=== PATIENT | male | born 1960 | race Caucasian/White ===

== ENCOUNTER → 2016-03-13 | Outpatient (CLI) | payer BC ==
[~2016-03-13] MED LIST: GADOBUTROL 10 ML VIAL IVP ONE
--- NOTE | 2016-03-13 14:32 | MR ---
MRI of the brain, with contrast. [facility] protocol. March 13, 2016. HISTORY: Preoperative evaluation for pituitary tumor. TECHNIQUE: After intravenous administration of 10 mL Gadavist, post contrast-enhanced axial volumetri c T1-weighted gradient echo sequences of the brain are obtained. An axial T2-weighted series was also obtained. FINDINGS: There is a large suprasellar mass which arises out of the sella turcica and extends superio rly to abut the optic chiasm and optic nerves and the undersurface of the anterior cerebral arteries. This mass measures 2.2 cm craniocaudal and mediolateral dimensions and 2.0 cm AP dimensions and is c ompatible with a pituitary macroadenoma. Postsurgical changes are present within the undersurface of the mass and in the posterior sphenoid sinus with associated mucosal thickening. No additional abnormal areas of brain enhancement or signal characteristics identified. IMPRESSION: 1. 2.2 cm suprasellar mass compatible with pituitary macroadenoma, extending superiorly to the level of the optic chiasm and anterior cerebral arteries.
--- NOTE | 2016-03-13 17:20 | CT ---
CT Maxillofacial (Without Contrast) at 1431 hours History: Pituitary macroadenoma.. Technique: Noncontrast axial computed tomographic images of the brain and maxillofacial at 1.25-mm sl ice thickness with coronal reconstructions. Dose reduction techniques were utilized. Findings: There is a mass in the sella turcica, which appears solid measuring 2.3 x 2.3 cm in axial d imension and 2.5 cm in cephalocaudal dimension extending into the suprasellar region demonstrating no definite calcification. There is a linear bone density probably from the posterior wall of the sphen oid sinus extending obliquely into the lesion. There is soft tissue noted in the posterior aspect of the sphenoid sinus. The rest of the paranasal sinuses are clear. No hydrocephalus, midline shift or h erniation. The study is limited due to lack of intravenous contrast. 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
== END ==
LOC: FIMAGING 13:12
PROVIDERS: ATTEND Neurological Surgery
DX: D35.2 Benign neoplasm of pituitary gland (principal)
CPT/HCPCS: A9585

== ENCOUNTER 2016-03-16 12:16 | Inpatient (IN) | payer BC ==
[~2016-03-16 12:16] MED LIST changes: +CEFUROXIME 1,500 MG in NS 50 ML IV ONE; +CHLORHEXIDINE GLUC HIBICLENS 118 ML BTL TP ONE; -GADOBUTROL 10 ML VIAL IVP ONE
[2016-03-16] MEDS ORDERED: LIDOCAINE 1% 5 ML SDV ONE (12:57)
[2016-03-16] MEDS ORDERED: MANNITOL 20% 100 GM/500 ML BAG IV ONE (13:46)
[2016-03-16] MEDS ORDERED: THROMBIN (RECOMBINANT) 5,000 UNIT VIAL TP ONE (13:46)
[2016-03-16] MEDS ORDERED: LIDO/EPI 1% **Not for Epidural 20 ML MDV ONE (13:47)
[2016-03-16] MEDS ORDERED: METHYLENE BLUE 0.5% 50 MG/10 ML AMP ONE (13:47)
[2016-03-16] MEDS ORDERED: BACITRACIN 50,000 UNITS/10 ML SYR IRR ONE (13:48)
[2016-03-16] MEDS ORDERED: EPINEPHrine 30 MG/30 ML MDV ONE (13:48)
[2016-03-16 13:52] LABS: % IMMATURE GRANULYOCYTES 0.7 % (0.0-1.1); ABSOLUTE IMMATURE GRANULOCYTES 0.04 10^3/uL (0.00-0.10); ADD DIFF? NO; ADD MORPH? NO; ADD SCAN? NO; ATYPICAL LYMPHOCYTE FLAG 0 (0-99); FRAGMENT RBC FLAG 0 (0-99); HEMATOCRIT 41.4 % (40.0-51.0); HEMOGLOBIN 15.3 g/dL (13.7-17.5); LEFT SHIFT FLG 0 (0-99); LIPEMIA HEMOLYSIS FLAG 90 (0-99); MEAN CELL HEMOGLOBIN 32.6 pg (27.9-34.1); MEAN CELL VOLUME 88.3 fL (81.5-99.8); MEAN PLATELET VOLUME 10.2 fL (8.7-11.7); PLATELET CLUMPS FLAG 0 (0-99); PLATELET COUNT 150 10^3/uL (150-400); RED BLOOD CELL COUNT 4.69 10^6/uL (4.40-6.38); RED CELL DISTRIBUTION WIDTH 13.1 % (11.5-15.2)
[2016-03-16 14:09] LABS: APTT 29.4 SEC (23.0-38.0); INR 0.96 (0.83-1.16); PROTIME(PATIENT) 12.7 SEC (12.0-15.0)
[2016-03-16 14:21] LABS: ANION GAP 13 mEq/L (8-16); CALCIUM 9.4 mg/dL (8.5-10.4); CARBON DIOXIDE 29 mEq/l (22-31); CHLORIDE 101 mEq/L (97-110); CREATININE 1.1 mg/dL (0.7-1.3); GLOMERULAR FILTRATION RATE > 60; GLUCOSE 83 mg/dL (70-100); POTASSIUM 4.4 mEq/L (3.5-5.2); SODIUM 143 mEq/L (134-144)
[2016-03-16] MEDS ORDERED: MIDAZOLAM 2 MG/2 ML VIAL ONE (14:38)
[2016-03-16] MEDS ORDERED: fentaNYL 100 MCG/2 ML INJ ONE ×2 (14:44→17:09)
[2016-03-16] MEDS ORDERED: PROPOFOL 200 MG/20 ML VIAL ONE (14:45)
[2016-03-16] MEDS ORDERED: ONDANSETRON 4 MG/2 ML VIAL ONE (14:47)
[2016-03-16] MEDS ORDERED: METOCLOPRAMIDE 10 MG/2 ML VIAL ONE (14:47)
[2016-03-16] MEDS ORDERED: ROCURONIUM 50 MG/5 ML VIAL ONE (14:47)
[2016-03-16] MEDS ORDERED: PHENYLEPHRINE HCL 100 MCG/ML SYR ONE (14:47)
[2016-03-16] MEDS ORDERED: HYDROCORTISONE 100 MG/2 ML VIAL ONE (17:54)
--- NOTE | 2016-03-16 19:02 | POSTOPPROG ---
Post Op Note Date of Operation: 03/16/16 Surgeon: Axel Hernandez Invasive Cardiologist: Saskia Monique MD Anesthesia: GET(General Endotracheal) Pre-op Diagnosis: pituitary adenoma Post-op Diagnosis: same Indication: residual pituitary adenoma Procedure: endoscopic transsphenoidal craniotomy for pituitary resection Findings: successful pituitary tumor removal Inf/Abcess present in the surg proc area at time of surgery?: No EBL: 50-100 Complications: none Drains: Other Specimen(s): pituitary adenoma Date of Surgery: 03/16/16 Post Op Day: 0 Assessment/Plan: s/p transsphenoidal resection of pituitary tumor - keep lumbar drain clamped for now - monitor for DI - nasal packs out tomorrow - CT tonight or tomorrow morning - endocrine consult tomorrow morning Subjective: no complaints Objective: AAOx3 CNII-XII grossly normal, VF at least at baseline strength full, sensation normal nasal packs in place Appropriate Neuro Check Frequency Ordered: Yes
[2016-03-16] MEDS ORDERED: BISACODYL 10 MG SUPP PR PRN (19:03)
[2016-03-16] MEDS ORDERED: LACTULOSE 20 GM/30 ML UDCUP PO PRN (19:03)
[2016-03-16] MEDS ORDERED: POLYETHYLENE GLYCOL 3350 17 GM PKT PO PRN (19:03)
[2016-03-16] MEDS ORDERED: MAGNESIUM HYDROXIDE 30 ML UDCUP PO PRN (19:03)
[2016-03-16] MEDS ORDERED: HYDROmorphONE/DILAUDID 1 MG/ML SYR ONE (19:07)
[2016-03-16] MEDS ORDERED: LORazepam 0.5 MG TAB PO PRN (19:11)
[2016-03-16] MEDS: HYDROmorphONE/DILAUDID 1 MG/ML SYR IVP PRN ×2 (19:24→21:46)
[2016-03-16] MEDS: NS W/ 20 KCl/L 1,000 ML IV SCH (19:24)
[2016-03-16] MEDS: niCARdipine/NACL 200 ML IV PRN (19:50)
[2016-03-16] MEDS: ACETAMN/DIPHENHYDRAMINE 500/25MG TAB PO SCH (20:02)
[2016-03-16] MEDS: SENNOSIDES/DOCUSATE SODIUM TAB PO SCH (20:02)
[2016-03-16] MEDS: HYDROCODONE/APAP 10/325 TAB PO PRN (20:02)
[2016-03-16] MEDS: clonazePAM 0.5 MG TAB PO SCH (20:02)
[2016-03-16] MEDS: HYDROCORTISONE 100 MG/2 ML VIAL IVP SCH (21:46)
[2016-03-16] MEDS: ONDANSETRON 4 MG/2 ML VIAL IVP PRN (21:46)
--- NOTE | 2016-03-17 00:44 | GOP ---
[f rep st] OPERATIVE REPORT DATE OF OPERATION: 03/16/2016 SURGEON: Axel Hernandez MD PREOPERATIVE DIAGNOSIS: Pituitary macroadenoma with visual loss. POSTOPERATIVE DIAGNOSIS: Pituitary macroadenoma with visual loss. PROCEDURE PERFORMED: 1. Endoscopic transsphenoidal craniotomy for redo resection of a partially resected pituitary macroa denoma. 2. Use of Stealth stereotactic neuronavigation for volumetric tumor resection. 3. Placement of lumbar drain. FINDINGS: Successful removal of a pituitary macroadenoma. SPECIMENS: The pituitary macroadenoma. ESTIMATED BLOOD LOSS: Approximately 50 cc. INDICATIONS: The patient is a 55-year-old man who is from [place]. He had been having visual loss and was seen to have a large, nearly 3 cm pituitary macroadenoma with suprasellar extension. He had seen a neurosurgeon in [place] and had a partial resection of the tumor via a sublabial approach, bu t according to the family, they were having some difficulties removing the remainder of the tumor. Nano simeon still has a very large suprasellar component and still has significant visual difficulty. He prese nted to our clinic, and we offered him repeat transsphenoidal surgery via an endoscopic approach. DESCRIPTION OF PROCEDURE: After informed consent was obtained from the patient, the patient was brou ght to the operating room. A formal time-out was performed, identifying the patient by name, medical record number and date of . Preoperative antibiotics were given. The endotracheal tube was pl aced, and general endotracheal anesthesia was smoothly induced. The patient was then turned into the left lateral decubitus position, and the lumbar region was prepped and draped in the normal sterile fashion. Localizing in the L3-4 interspace at the upper portion of the inner iliac crest, a 14-gauge Touhy needle was then placed in the interlaminar space, into the thecal space, with a good return of clear CSF. A lumbar drain catheter was then threaded to a depth of approximately 30 cm at the skin and was secured to the skin using a nylon stitch. The drain was then connected to a sterile drainage system and was dressed sterilely on the lumbar region. The drain was working well with a good flow of CSF. The patient was then turned back into the supine position, where his head was placed in a neutral pos ition on a horseshoe headrest. The nose was prepared using epinephrine-soaked patties by Dr. Monique , and the facial region was prepped using Betadine. The patient was then prepped and draped in the n ormal sterile fashion, leaving the nose and eyes exposed. The Stealth fusion station was then locali zed to the scalp using known surface landmarks and was checked for accuracy. The approach was then d one by Dr. Monique using the endoscope. This will be dictated under a separate note, but in brief, t he superior turbinates were resected bilaterally and the middle turbinates were pushed laterally. Th e sphenoid ostia were visualized, and the posterior portion of the nasal septum was resected. The p revious sphenoidotomy was visualized and a lot of scar tissue was removed from around the sphenoidoto my, and the sphenoidotomy was made larger using Kerrison punches. At this point, the contents of the sphenoid sinus, which included some packing from previous, were removed. The posterior sphenoid sin us was visualized, and a lot of swollen mucosa was visualized there. This was stripped somewhat from the bone, and a very small opening in the sella was visualized. Given the amount of scar tissue and the size of the tumor, the dissection and resection of the tumor was approximately 50% to 60% more d ifficult than would normally be expected and took somewhat longer and was more tedious. Using Kerris on punches, I then removed the anterior wall of the sella down to the sellar floor and up to the junc tion of the anterior cranial fossa. This allowed for further visualization of the tumor. A small pi osvaldo of bone, which appeared to have been placed at the previous surgery, was visualized within the tu mor in the sella turcica. Once this was removed, the tumor was visualized, and we were able to remov e the lateral and posterior components using ring curettes and pituitary forceps. Once the posterior portion was removed, we then flushed about 100 cc of sterile saline in through the lumbar drain to h elp deliver the upper portion of the tumor, which was not well visualized. This portion of the tumor then came down into the sella and was removed nearly en bloc with pituitary forceps. We then used r ing curettes to remove a small amount of residual tumor at the edges, and the lumbar drain was draine d to allow the arachnoid to return back into the suprasellar cistern. We could clearly see through t he arachnoid that all the upper portion of the tumor had been removed. We then inspected the posteri or cavity of the sella and used ring curettes again to remove a large piece of tumor which was residu al in the right portion near the cavernous sinus. All bleeding was then controlled using bipolar electrocautery and Surgicel. We did briefly use a 45- degree endoscope to visualize the upper portions where no further tumor was seen. No CSF was leaking from the arachnoid at that point. The ENDYMIONalth unit was again used to check our margins and be sure that the entirety of the tumor was resected. At this point, a small bit of Surgicel was placed into the sella to stop any bleeding from the cavernous sinus. This was quite dry. Given there was no vis ualized CSF leak, I did not feel it was necessary to take an abdominal fat graft. Therefore the sell ar opening was covered with Surgicel, and this was covered with DuraSeal. The sphenoid sinus was the n packed with Gelfoam and Surgicel, and Merocel nasal packs were placed inferiorly by Dr. Monique and used to tamponade the mucosa. At this point, the nose was copiously irrigated using bacitracin irri gation. The patient was then awakened in the operating room, where he was extubated and was transfer red to the ICU in good condition. There were no operative complications. The patient was at his juan carlos rologic baseline, with possibly slightly improved vision after surgery. COSURGEON: Diane Monique MD, of Otolaryngology. FLUIDS AND URINE OUTPUT: Per the anesthesia record. COUNTS: All sponge and needle counts were correct at the end of the case. DRAINS: Lumbar drain. /[id number]/MODL
[2016-03-17] MEDS: niCARdipine/NACL 200 ML IV PRN (01:03)
[2016-03-17] MEDS: HYDROCODONE/APAP 10/325 TAB PO PRN (02:00)
[2016-03-17] MEDS: HYDROmorphONE/DILAUDID 1 MG/ML SYR IVP PRN (02:00)
[2016-03-17] MEDS: ONDANSETRON 4 MG/2 ML VIAL IVP PRN (02:08)
[2016-03-17] MEDS ORDERED: CALCIUM CARBONATE 500 MG CHEWABLE TAB PO ONE ×2 (02:25)
[2016-03-17] MEDS ORDERED: CALCIUM CARBONATE 500 MG CHEWABLE TAB PO PRN (02:37)
[2016-03-17] MEDS: NS W/ 20 KCl/L 1,000 ML IV SCH (05:05)
[2016-03-17 05:36] LABS: % IMMATURE GRANULYOCYTES 0.6 % (0.0-1.1); ABSOLUTE IMMATURE GRANULOCYTES 0.06 10^3/uL (0.00-0.10); ADD DIFF? NO; ADD MORPH? NO; ADD SCAN? NO; ATYPICAL LYMPHOCYTE FLAG 10 (0-99); FRAGMENT RBC FLAG 0 (0-99); HEMATOCRIT 40.5 % (40.0-51.0); HEMOGLOBIN 14.3 g/dL (13.7-17.5); LEFT SHIFT FLG 10 (0-99); LIPEMIA HEMOLYSIS FLAG 90 (0-99); MEAN CELL HEMOGLOBIN 32.1 pg (27.9-34.1); MEAN CELL HEMOGLOBIN CONCENTR. 35.3 g/dL (32.4-36.7); MEAN PLATELET VOLUME 9.8 fL (8.7-11.7); PLATELET CLUMPS FLAG 0 (0-99); PLATELET COUNT 162 10^3/uL (150-400); RED BLOOD CELL COUNT 4.45 10^6/uL (4.40-6.38); RED CELL DISTRIBUTION WIDTH 13.1 % (11.5-15.2)
[2016-03-17] MEDS: LEVOTHYROXINE 50 MCG TAB PO SCH (05:58)
[2016-03-17] MEDS: HYDROCORTISONE 100 MG/2 ML VIAL IVP SCH ×3 (05:58→21:00)
[2016-03-17] MEDS: ACETAMINOPHEN 325 MG TAB PO PRN ×4 (05:58→20:12)
[2016-03-17 06:01] LABS: ANION GAP 8 mEq/L (8-16); CALCIUM 8.7 mg/dL (8.5-10.4); CARBON DIOXIDE 28 mEq/l (22-31); CHLORIDE 103 mEq/L (97-110); CREATININE 1.2 mg/dL (0.7-1.3); GLOMERULAR FILTRATION RATE > 60; GLUCOSE 120 mg/dL (70-100); SODIUM 139 mEq/L (134-144)
[2016-03-17 06:03] LABS: POTASSIUM 6.3 mEq/L (3.5-5.2)
[2016-03-17 06:58] LABS: POTASSIUM 5.3 mEq/L (3.5-5.2)
--- NOTE | 2016-03-17 07:24 | NEUSURGPN ---
Assessment/Plan: 55 yo male sp endoscopic redo resection of pituitary adenoma. Preexisting VF deficits unchanged. Neuro stable and doing well with mild PENNY No DI overnight. UOP averaged 93ml/hr over 12 hr shift LD has been clamped since surgery and pt is not having any drainage down back of throat that he is aware of Nasal packing still in. Plan: Discussed with Dr. Hernandez Keep LD until tomorrow Dr. Weston to remove nasal packing Dr Rose (Endo) to come by today to assist and direct steroid use/taper Oxy IR for Pain Pepcid added notify NS if UOPover 250ml/hr x 2 hrs. If so, send specific gravity and Na level and notify Dr. Hernandez Subjective: awake, feeling ok, denies nasal drainage. Mild PENNY no new issues. Objective: NEURO: A+Ox4, follows commands, equal strenght throughout VF deficit unchanged per pt LD: Clamped UOP: 93ml/hr on average over 12 hrs. CTH: small amt of blood in operative bed -expected. Urinary Catheter in Place: Yes Urinary Catheter Indication: Surgical Requirement Catheter Insertion Date: 03/16/16 - Physician Discussed Patient with : Mary Neurosurgery Physical Exam - Vitals, I&O, Labs I and O 03/16/16 03/17/16 03/18/16 05:59 05:59 05:59 Intake Total 1189 Output Total 1125 Balance 64 Weight 104.5 kg Intake: IV Infused (ml) 1189 niCARdipine/NACL 200 ml @ 177 Titrate IV PRN PRN Rx#: [id number] NS W/ 20 KCl/L 1,000 ml @ 1012 100 mls/hr IV CONT JADA Rx#:[id number] Output: Urine (ml) 1125 Catheter 1125 Other: Intake Quantity Yes Sufficient Vital Signs Temp Pulse Resp BP Pulse Ox 36.2 C 71 11 L 105/75 99 03/16/16 18:56 03/17/16 06:00 03/17/16 06:00 03/17/16 06:00 03/17/16 06:00 Laboratory Results 03/17/16 05:30 03/17/16 05:42 ICD10 Worksheet Patient Problems: Problems Problem Status Diagnosed Pituitary adenoma Acute - ICD10 Problem Qualifiers (1) Pituitary adenoma
--- NOTE | 2016-03-17 08:43 | CT ---
CT Head Without Contrast History: Follow-up pituitary macroadenoma resection. Technique: Noncontrast images through the head. Soft tissue and bone window evaluation is performed. Dose reduction techniques were utilized. Findings: Post transsphenoidal resection, there is a contiguous hematoma in the suprasellar cistern t hat extends into the previously widened posterior inferior aspect of the anterior interhemispheric fi ssure and in the upper portion of the chronically expanded sella turcica. There is a small amount of subarachnoid blood in the interpeduncular cistern, within the occipital horns of both lateral ventric les and in the posterior aspect of the right sylvian fissure. There is no hydrocephalus or midline sh ift. The ambient cistern remains patent. A small 4mm nodule within the posterior inferior sella turc ica may represent a secondary hematoma. There is packing in both sides of the nose. Impression: Postoperative hemorrhage. General information for patients regarding this examination can be found at [email or web address]. If you have questions or comments about this report, please contact me at [phone] (hospital) or [phone] (cell).
[2016-03-17] MEDS: clonazePAM 0.5 MG TAB PO SCH ×2 (09:00→20:13)
[2016-03-17] MEDS: FAMOTIDINE 20 MG TAB PO SCH ×2 (09:00→20:12)
[2016-03-17] MEDS: buPROPion XL 150 MG TAB PO SCH (09:00)
[2016-03-17] MEDS: SENNOSIDES/DOCUSATE SODIUM TAB PO SCH ×2 (09:01→20:12)
[2016-03-17 14:48] LABS: ANION GAP 6 mEq/L (8-16); CALCIUM 7.9 mg/dL (8.5-10.4); CARBON DIOXIDE 24 mEq/l (22-31); CHLORIDE 113 mEq/L (97-110); GLOMERULAR FILTRATION RATE > 60; GLUCOSE 106 mg/dL (70-100); POTASSIUM 4.1 mEq/L (3.5-5.2); SODIUM 143 mEq/L (134-144)
--- NOTE | 2016-03-17 15:05 | GCON ---
[f rep st] CONSULTATION CRITICAL CARE CONSULTATION DATE OF CONSULTATION: 03/17/2016 HISTORY OF PRESENT ILLNESS: The patient is a 55-year-old male who originally presented with visual c hanges. An MRI showed a pituitary adenoma. He underwent resection in January of this past year but had suboptimal results. He initially got better but had increasing headaches, and an MRI showed a s ignificant residual tumor. He underwent transsphenoidal resection yesterday, and that was without co mplication and he feels much better. His vision has improved. In terms of symptoms, he feels that the visual acuity is back to normal. His headache is gone. He h as had no hearing changes. No swallowing difficulties. No fevers, chills, or sweats. No shortness of breath or chest pain. The rest of the review of systems is otherwise negative. PAST MEDICAL HISTORY: Includes: 1. Pituitary tumor as described above. 2. Depression. 3. 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 PAST SURGICAL HISTORY: Includes the previous resection as well as the current one. SOCIAL HISTORY: He is a nonsmoker. No alcohol or IV drug use. FAMILY HISTORY: Noncontributory at this time. CURRENT MEDICATIONS: Include Tylenol, [place], Dulcolax, Wellbutrin, Klonopin, Pepcid, Solu-Cortef 50 mg IV q.8, Dilaudid p.r.n., lactulose p.r.n., Synthroid, Zofran, MiraLAX, nicardipine as needed to ma intain blood pressure. PHYSICAL EXAM: VITAL SIGNS: He was afebrile. His blood pressure was 108/76 with a heart rate of 76 , respirations 14, oxygen saturation 97% on room air. GENERAL: He was awake and alert, in no appare nt distress and able to speak in full sentences without using accessory muscles for breathing. He wa s overweight but not terribly obese. HEENT: Pupils were equally round and reactive to light, nonict amando and noninjected. His dressing under his nose was clean and dry. NECK: Supple without adenopat hy or jugular vein distention. LUNGS: Breath sounds were clear to auscultation bilaterally without wheezes, rubs or rales. HEART: Regular rate and rhythm without murmurs, rubs, or gallops. ABDOMEN: Soft, nontender, and nondistended without hepatosplenomegaly. EXTREMITIES: No clubbing, cyanosis, or edema. NEUROLOGIC: Nonfocal, including cranial nerves and deep tendon reflexes. SKIN: Warm an d dry without evidence of rash. LABORATORY STUDIES: Objective data includes a white count of 10, hematocrit of 40, platelets of 162. Sodium 141, potassium 5.3 and this was noted at 0542, chloride 103, bicarb 28, BUN 21, creatinine 1 .2. Specific gravity was 1.03 and urine sodium was 12, which is low, and this was drawn at 0930. Of note, his urine output has picked up to 2416-5555 mL/h. ASSESSMENT/PLAN: 1. Pituitary adenoma. This appears to have been resected without difficulty and seems to be doing w ell from that perspective. 2. 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 Endocrine is soon t o see him, and we are keeping up with his fluid. The urine sodium is low at this time. We should pr obably look at a serum sodium this afternoon to see if that is climbing, in which case we might give DDAVP. 3. Panhypopituitarism. He should be covered reasonably well on the current steroids, although I def er to Endocrine, of course, and they should be able to see him in the very near future. /[id number]/MODL
[2016-03-17] MEDS: NS 1,000 ML IV SCH (15:12)
[2016-03-17] MEDS ORDERED: DESMOPRESSIN 0.1 MG TAB PO SCH (17:00)
--- NOTE | 2016-03-17 17:13 | SOAPPROG ---
SOAP Progress Note Assessment/Plan: Assessment: POD 1 transsphenoidal approach to the pituitary for macroadenoma. Pack removed. Looks great. No overt leak sxs. Minimal bloody dc which will likely stop since packs pulled. Given instructions for post op care. Will come back in 6 weeks for recheck. Can start nasal saline mist in 2 weeks and rinses in 6 weeks. CSF leak precautions given. No nose blowing for 6 weeks. Call with further questions. 03/17/16 17:10 Subjective: Doing well, no sig PENNY, no salty PND or rhinorrhea. Packs in place, minimal ooze. Objective: AAOx3 PERRL, EOMI OU Nasal packs removed from each side. NC clear on rhinoscopy No sig bleeding Vital Signs Temp Pulse Resp BP Pulse Ox 36.6 C 82 14 115/70 96 03/17/16 16:00 03/17/16 16:00 03/17/16 16:00 03/17/16 16:00 03/17/16 16:00 Laboratory Results 03/17/16 05:30 03/17/16 14:10 03/16/16 03/17/16 03/18/16 05:59 05:59 05:59 Intake Total 1189 960 Output Total 1125 6200 Balance 64 -5240 PT 12.7 SEC (12.0-15.0) 03/16/16 13:35 INR 0.96 (0.83-1.16) 03/16/16 13:35 ICD10 Worksheet Patient Problems: Problems Problem Status Diagnosed Pituitary adenoma Acute
[2016-03-17] MEDS: diphenhydrAMINE 25 MG CAP PO PRN (20:12)
[2016-03-17] MEDS: ACETAMN/DIPHENHYDRAMINE 500/25MG TAB PO SCH (20:12)
[2016-03-18] MEDS: ACETAMINOPHEN 325 MG TAB PO PRN ×4 (02:14→19:31)
[2016-03-18] MEDS ORDERED: DESMOPRESSIN 0.1 MG TAB PO SCH (02:30)
[2016-03-18] MEDS: HYDROCORTISONE 100 MG/2 ML VIAL IVP SCH ×3 (05:58→21:53)
[2016-03-18] MEDS: LEVOTHYROXINE 50 MCG TAB PO SCH (05:58)
[2016-03-18] MEDS: buPROPion XL 150 MG TAB PO SCH (08:25)
[2016-03-18] MEDS: SENNOSIDES/DOCUSATE SODIUM TAB PO SCH ×2 (08:25→20:56)
[2016-03-18] MEDS: FAMOTIDINE 20 MG TAB PO SCH ×2 (08:25→20:57)
[2016-03-18] MEDS: clonazePAM 0.5 MG TAB PO SCH ×2 (08:25→20:57)
--- NOTE | 2016-03-18 11:31 | NEUSURGPN ---
Date of Surgery: 03/17/16 Post Op Day: 1 Assessment/Plan: s/p transsphenoidal resection of pituitary tumor - lumbar drain removed - had some large urine output overnight, 4L, was redosed with 0.1mg of DDAVP - nasal packs out, no CSF leak - endocrine consult pending to determine DI management and steroid taper - possible d/c tomorrow if DI well controlled Subjective: no complaints, improving daily Objective: AAOX3, VF improving, still some bitemporal hemianopsia, Full strength and sensation Catheter Insertion Date: 03/16/16 - Physician Patient Seen by DrFransisco: Mary Neurosurgery Physical Exam - Vitals, I&O, Labs I and O 03/17/16 03/18/16 03/19/16 05:59 05:59 05:59 Intake Total 1189 6892 Output Total 1125 57624 665 Balance 64 -3808 -665 Weight 104.5 kg Intake: Oral (ml) 2460 IV Infused (ml) 1189 4432 niCARdipine/NACL 200 ml @ 177 Titrate IV PRN PRN Rx#: [id number] NS W/ 20 KCl/L 1,000 ml @ 1012 100 mls/hr IV CONT JADA Rx#:[id number] Ns 1,000 ml @ As Directed 4432 IV AD JADA Rx#:[id number] Output: Urine (ml) 1125 02801 665 Catheter 1125 39966 665 Other: Intake Quantity Yes Yes Sufficient Vital Signs Temp Pulse Resp BP Pulse Ox 37.3 C 68 10 L 124/70 H 98 03/18/16 08:00 03/18/16 10:00 03/18/16 10:00 03/18/16 10:00 03/18/16 10:00 Laboratory Results 03/17/16 05:30 03/18/16 06:30 ICD10 Worksheet Patient Problems: Problems Problem Status Diagnosed Pituitary adenoma Acute
[2016-03-18] MEDS: NS 1,000 ML IV SCH ×2 (12:07→23:32)
[2016-03-18 12:24] LABS: GLUCOSE 88 mg/dL (70-100); SODIUM 144 mEq/L (134-144)
--- NOTE | 2016-03-18 12:54 | SOAPPROG ---
DONNELL Progress Note Assessment/Plan: Assessment: S/p TSS for pituitary macroadenoma, null cell. Now in DI. Plan: Recommend DDAVP 0.1mg every 6 hours prn excessive thirst and over 250cc UOP for more than 2 hours Check sodium and spec grav every 6 hours for 24 hours, will follow it after d/c as an outpt Recommend discharging on Hydrocortisone 20mg in the am and 10mg in the afternoon , around 1-2pm Can also discharge with DDAVP 0.1mg as needed every 8 hours, discussed symptoms of DI, and when he should take it He should go to the lab on 03/21/16 for BMP, TSH, FT4, and urine spec grav We will contact him with a follow up apt He was given office contact information for any questions 03/18/16 12:47 03/18/16 15:30 Subjective: Called to see for DI s/p TSS for pituitary macroadenoma Sodium level is still high normal, he denies excessive thirst, and did well with DDAVP overnight UOP now over 250cc per hour Objective: Vital Signs Temp Pulse Resp BP Pulse Ox 36.7 C 70 12 119/72 98 03/18/16 12:00 03/18/16 12:00 03/18/16 12:00 03/18/16 12:00 03/18/16 12:00 Laboratory Results 03/17/16 05:30 03/18/16 11:45 03/17/16 03/18/16 03/19/16 05:59 05:59 05:59 Intake Total 1189 3792 Output Total 1125 58634 915 Balance 64 -3808 -915 PT 12.7 SEC (12.0-15.0) 03/16/16 13:35 INR 0.96 (0.83-1.16) 03/16/16 13:35 ICD10 Worksheet Patient Problems: Problems Problem Status Diagnosed Pituitary adenoma Acute
--- NOTE | 2016-03-18 13:38 | GOP ---
[f rep st] OPERATIVE REPORT DATE OF OPERATION: 03/16/2016 SURGEON: Diane Monique MD CO-SURGEON: Axel Hernandez MD COMPLICATIONS: None apparent. ANESTHESIA: General. PREOPERATIVE DIAGNOSIS: 1. Pituitary macroadenoma. 2. Bitemporal hemianopsia. POSTOPERATIVE DIAGNOSIS: 1. Pituitary macroadenoma. 2. Bitemporal hemianopsia. PROCEDURE PERFORMED: 1. Endoscopic transnasal/transsphenoidal approach to the pituitary for revision resection. 2. Stereotactic volumetric navigation of the paranasal sinuses and intracranial regions. FINDINGS: The patient was found to have a previous sublabial approach to the pituitary tumor. There was a very small sphenoidotomy on both sides, but they basically looked like they had been scarred in. There was really not much of the posterior septum that was taken out at all, and there was a very small portion of the sellar bone that had been removed. After widening the approach, Dr. Hernandez was able to successfully remove the remainder of the tumor. ESTIMATED BLOOD LOSS: About 50 cc. INDICATIONS: This is a very pleasant 55-year-old man who is from [place]. He was having bitemporal hemianopsia and was noted to have an almost 3 cm pituitary macroadenoma with suprasellar extension on MRI. He saw a surgeon in [place] and had a partial resection done about 6 weeks ago, but apparently they had some difficulty removing the entire tumor, so he came to us for a secondary opinion and resection. On preoperative MRI as well as CT scan, all sinuses were intact as well as the septum. He still had a very large suprasellar component and still had vision loss. DESCRIPTION OF PROCEDURE: The patient was first seen in the preoperative area, and informed consent was obtained. He was then brought back to the operating room where Anesthesia sedated and intubated him. The bed was turned 180 degrees. I initially placed just under 1 cc of 1% lidocaine with 1:200,000 epinephrine in the greater palatine foramen on both sides under direct visualization. This was not injected into the vessels, but just into the canal to help with hemostasis during the surgery. After this was done, Dr. Hernandez performed a lumbar drain without difficulty. The patient was turned back over into the supine position, and then he was prepped and draped in a sterile fashion. Epi-soaked pledgets were placed within the nares first for vasoconstriction. Once this was done, they were removed. Then the Unicontronic Fusion headpiece was placed on the forehead, and this was registered and confirmed to tracking accurately. Once this was done, the zero-degree scope was used to evaluate the nasal cavity bilaterally. It did look like they had probably previously approached this from the left side, as there was absent and irritated mucosa on the left side of the septum. All of the nasal cavity anatomy was intact. So at this point, I used a Conley to lateralize the middle turbinate on both sides until I could see the superior turbinate. Then first on the left, I used a straight Thru-Cut to remove the inferior one-third of the superior turbinate, and then this was completed using the microdebrider, removing probably the inferior two-thirds of this area on both sides. At this point, I then could see a very small sphenoid os that looked like it had been scarred in. This was able to be widened using the microdebrider. After confirmation with our Fusion-guided suction, this was done on both sides. Then once I could see into the sphenoids on both sides, I then used a caudal instrument to make a [id number] cut of the posterior septum about 2 cm proximal to the face of the sphenoid bone. Then a straight Thru-Cut as well as the microdebrider were used to remove the rest of the superior posterior septum, trying to keep intact the inferior portion where the nasoseptal flap pedicle would be, although I was not certain whether this vessel had been saved or not on his previous surgery. Once this was done and the septectomy was finished, the microdebrider as well as a combination of hand instruments were used to continue widening the approach superiorly, inferiorly, and then laterally. At this point, we were able to see significant edematous mucosa throughout the sphenoid on both sides. There was a little bit of intersinus septum that was taken down, and then we could see the previous entry into the sella. This was significantly more difficult due to his previous surgery and some changes to the anatomy as well as significantly irritated mucosa throughout the sphenoid. At this point after the mucosa was removed around this area, my portion of the procedure was complete, so Dr. Hernandez and I switched sides, with him coming to the right side of the patient and me going to the left side of the patient. I continued to assist in endoscopic visualization through the left side of the nasal cavity, and he would work through the right side. The remainder of the tumor was removed without difficulty, and this is dictated under a separate procedure note by Dr. Hernandez. Once this was done, we did not see any significant CSF leaking. The Stealth was used to check margins and confirm that the entirety of the tumor was resected. We did see arachnoid herniating down into the sella with no further tumor noted. Dr. Hernandez covered the sellar opening with Surgicel and then DuraSeal. Then the sphenoid sinus was packed with Gelfoam and Surgicel. At this point, I then placed Merocel nasal packs that were cut to size, one on each side, stopping just at the face of the sphenoid. The nasal cavity was suctioned clear. All instruments were removed. The patient was turned back over to Anesthesia, and he was awakened and extubated in normal condition. There were no complications, and he tolerated the procedure well. /[id number]/MODL MTDD
--- NOTE | 2016-03-18 13:41 | PDINTPN ---
[employer] Line Supervisor Progress Note Assessment/Plan: Assessment/plan: 55 M with pituitary adenoma and panhypopituitarism admitted 03/16 for transphenoidal resction complicated only by DI. * Pit adenoma resection stable post op * DI- seen by endo today. Planning Q6 hr Na/urine SG checks and DDAVP with UOP > 250/hr (current) * Panhypopit- remains on hydrocortisone * Dispo- likely home in AM Objective: Vital Signs Temp Pulse Resp BP Pulse Ox 36.7 C 70 12 119/72 98 03/18/16 12:00 03/18/16 12:00 03/18/16 12:00 03/18/16 12:00 03/18/16 12:00 Laboratory Results 03/17/16 05:30 03/18/16 11:45 03/17/16 03/18/16 03/19/16 05:59 05:59 05:59 Intake Total 1189 6892 Output Total 1125 10283 915 Balance 64 -3808 -915 PT 12.7 SEC (12.0-15.0) 03/16/16 13:35 INR 0.96 (0.83-1.16) 03/16/16 13:35 Physical Exam - Physical Exam General Appearance: alert, no apparent distress EENT: PERRL/EOMI, normal ENT inspection Neck: full range of motion, supple Respiratory: lungs clear, normal breath sounds, No respiratory distress Cardiac/Chest: normal peripheral pulses, regular rate, rhythm, No edema Abdomen: normal bowel sounds, non-tender, soft Skin: normal color, warm/dry, No rash Lymphatic: no adenopathy Extremities: normal range of motion, non-tender, No pedal edema Neuro/Psych: alert, normal mood/affect, oriented x 3 ICD10 Worksheet Patient Problems: Problems Problem Status Diagnosed Pituitary adenoma Acute
[2016-03-18] MEDS: DESMOPRESSIN 0.1 MG TAB PO PRN ×2 (13:56→21:02)
[2016-03-18 18:29] LABS: ANION GAP 6 mEq/L (8-16); CALCIUM 8.7 mg/dL (8.5-10.4); CARBON DIOXIDE 29 mEq/l (22-31); CHLORIDE 106 mEq/L (97-110); CREATININE 1.1 mg/dL (0.7-1.3); GLOMERULAR FILTRATION RATE > 60; GLUCOSE 121 mg/dL (70-100); POTASSIUM 4.3 mEq/L (3.5-5.2); SODIUM 141 mEq/L (134-144)
[2016-03-18] MEDS: ACETAMN/DIPHENHYDRAMINE 500/25MG TAB PO SCH (19:31)
[2016-03-18] MEDS: diphenhydrAMINE 25 MG CAP PO PRN (20:56)
[2016-03-19 01:44] LABS: ANION GAP 5 mEq/L (8-16); CALCIUM 7.5 mg/dL (8.5-10.4); CARBON DIOXIDE 25 mEq/l (22-31); CHLORIDE 113 mEq/L (97-110); CREATININE 0.8 mg/dL (0.7-1.3); GLOMERULAR FILTRATION RATE > 60; GLUCOSE 125 mg/dL (70-100); POTASSIUM 3.6 mEq/L (3.5-5.2); SODIUM 143 mEq/L (134-144)
[2016-03-19] MEDS: LEVOTHYROXINE 50 MCG TAB PO SCH (05:58)
[2016-03-19] MEDS: HYDROCORTISONE 100 MG/2 ML VIAL IVP SCH (05:58)
[2016-03-19 07:25] LABS: ANION GAP 7 mEq/L (8-16); CALCIUM 7.6 mg/dL (8.5-10.4); CARBON DIOXIDE 19 mEq/l (22-31); CHLORIDE 116 mEq/L (97-110); CREATININE 0.8 mg/dL (0.7-1.3); GLOMERULAR FILTRATION RATE > 60; GLUCOSE 89 mg/dL (70-100); POTASSIUM 4.4 mEq/L (3.5-5.2); SODIUM 142 mEq/L (134-144); SPECIMEN HEMOLYSIS 153
[2016-03-19] MEDS: FAMOTIDINE 20 MG TAB PO SCH (08:31)
[2016-03-19] MEDS: clonazePAM 0.5 MG TAB PO SCH (08:31)
[2016-03-19] MEDS: buPROPion XL 150 MG TAB PO SCH (08:31)
[2016-03-19] MEDS: SENNOSIDES/DOCUSATE SODIUM TAB PO SCH (08:31)
[2016-03-19 08:48] VITALS: BP 129/78; PULSE 87; RESP 18; TEMP 98; O2SAT 99
--- NOTE | 2016-03-19 10:25 | NEUSURGPN ---
Date of Surgery: 03/16/16 Post Op Day: 3 Assessment/Plan: s/p transsphenoidal resection of pituitary tumor - lumbar drain removed yesterday - I/O 1278/4040 over last 24hr - nasal packs out, no CSF leak - sodium 142 this am with [employer] of 1.011 - will plan to d/c home today - will write scripts for PRN DDAVP and hydrocortisone - will followup for labs with Dr. Rose on Sunday - followup with [facility] in 6 weeks Subjective: no complaints, thinks vision is improving Objective: AAOx3 no sign of CSF leak bitemporal hemianopsia stable strength full Catheter Insertion Date: 03/16/16 - Physician Patient Seen by DrFransisco: [facility] Physical Exam - Vitals, I&O, Labs I and O 03/18/16 03/19/16 03/20/16 05:59 05:59 05:59 Intake Total 6892 3349 Output Total 30419 4040 Balance -3808 -691 Intake: Oral (ml) 2460 1500 IV Infused (ml) 4432 1849 Ns 1,000 ml @ As Directed 4432 1849 IV AD JADA Rx#:[id number] Output: Urine (ml) 13749 4040 Catheter 24311 4040 Other: Intake Quantity Yes Yes Sufficient Number of Stools Catheter 1 Vital Signs Temp Pulse Resp BP Pulse Ox 36.7 C 87 18 129/78 H 99 03/19/16 08:00 03/19/16 08:00 03/19/16 08:00 03/19/16 08:00 03/19/16 08:00 Laboratory Results 03/17/16 05:30 03/19/16 06:05 ICD10 Worksheet Patient Problems: Problems Problem Status Diagnosed Pituitary adenoma Acute
[2016-03-19] MEDS: ACETAMINOPHEN 325 MG TAB PO PRN (10:39)
[2016-03-19] MEDS: DESMOPRESSIN 0.1 MG TAB PO PRN (10:39)
== END 2016-03-19 12:10 | disposition home or self-care (01) | DRG 614 ==
LOC: F3N 12:16 → F2N 18:49
PROVIDERS: ADMIT Neurological Surgery; ATTEND Neurological Surgery
PROC: 0GB04ZZ Excision of Pituitary Gland, Percutaneous Endoscopic Approach (ICD-10-PCS; principal; 2016-03-16 14:30)
PROC: 8E09XBZ Computer Assisted Procedure of Head and Neck Region (ICD-10-PCS; principal; 2016-03-16 14:30)
PROC: 009U30Z Drainage of Spinal Canal with Drainage Device, Percutaneous Approach (ICD-10-PCS; principal; 2016-03-16 14:30)
DX: D35.2 Benign neoplasm of pituitary gland (principal); E23.2 Diabetes insipidus; E23.0 Hypopituitarism; H53.47 Heteronymous bilateral field defects; E03.9 Hypothyroidism, unspecified; F32.9 Major depressive disorder, single episode, unspecified
CPT/HCPCS: 82947-QW; J0697; J1170; J2250; J2370; J2405; J2704; J2765; J3010; Q9968

== ENCOUNTER 2016-03-20 09:56 | Emergency (ER) | payer BC ==
--- NOTE | 2016-03-20 10:05 | EDPHY ---
H & P Stated Complaint: fever post surgery for pituitary tumor 03/16 dr machado Time Seen by Provider: 03/20/16 10:04 HPI/ROS: CHIEF COMPLAINT: Reported fever at home, slight headache HISTORY OF PRESENT ILLNESS: The patient presents to the ED for a reported fever at home to 101.2. The patient is approximately 3 days status post pituitary tumor resection which was uncomplicated. The patient did have some diabetes insipidus following that. He is currently being managed by Endocrinology with steroids and DDAVP. The patient denies cough, congestion, diarrhea or dysuria. The patient has no complaints of fever, cough or congestion. The patient denies flu-like illness. The patient denies focal neurologic symptoms or other concerns. REVIEW OF SYSTEMS: A comprehensive 10 point review of systems is otherwise negative aside from elements mentioned in the history of present illness. Source: Patient Exam Limitations: No limitations - Personal History Current Tetanus/Diphtheria Vaccine: Yes - Medical/Surgical History Hx Asthma: No Hx Chronic Respiratory Disease: No Hx Diabetes: No Hx Cardiac Disease: No Hx Renal Disease: No Hx Cirrhosis: No Hx Alcoholism: No Hx HIV/AIDS: No Hx Splenectomy or Spleen Trauma: No Other PMH: pituitary tumor/diabetes insipidus - Social History Smoking Status: Never smoked - Physical Exam Exam: General Appearance: Alert, no distress Eyes: Pupils equal and round no pallor or injection ENT, Mouth: Mucous membranes moist Respiratory: There are no retractions, lungs are clear to auscultation Cardiovascular: Regular rate and rhythm Gastrointestinal: Abdomen is soft and nontender, no masses, bowel sounds normal Neurological: A&O, normal motor function, normal sensory exam, normal cranial nerves Skin: Warm and dry, no rashes Neck: No meningeal symptoms Musculoskeletal: Neck is supple nontender Extremities: symmetrical, full range of motion Constitutional: Initial Vital Signs Heart Rate 64 03/20/16 10:00 Respiratory Rate 17 03/20/16 10:00 O2 Sat (%) 95 03/20/16 10:00 O2 Delivery Mode Room Air Allergies/Adverse Reactions: No Known Allergies Allergy (Verified 03/20/16 09:59) Home Medications: Medication Instructions Recorded Acetaminophen [Tylenol 325mg (*)] 325 mg PO DAILY PRN 03/09/16 Acetamn/Diphenhydramine 500/25 1 each PO HS 03/09/16 [Tylenol PM (*)] Hydrocortisone [Cortef 10 mg (*)] 10 mg PO DAILY 03/09/16 Hydrocortisone [Cortef 10 mg (*)] 20 mg PO DAILY@16 03/09/16 LORazepam [Ativan (*)] 0.5 mg PO DAILY PRN 03/09/16 Levothyroxine [Synthroid 50 mcg 50 mcg PO DAILY06 03/09/16 (*)] buPROPion XL [Wellbutrin 150mg XL] 150 mg PO DAILY 03/09/16 clonazePAM [Klonopin (*)] 0.5 mg PO BID 03/09/16 Acetaminophen [Tylenol 325mg (*)] 650 mg PO Q4HRS PRN #0 tab 03/19/16 Desmopressin 03/20/16 Medical Decision Making ED Course/Re-evaluation: The patient presents to emergency department for evaluation of a fever at home and slight headache. The patient is well-appearing upon arrival. He has no meningeal symptoms. He did appear slightly dehydrated. The patient did have an IV established. He received 2 L of normal saline. The patient's laboratory studies, urinalysis and serum electrolytes are within normal limits. I did review his case with his neurosurgeon Dr. Machado today. The patient has had no documented fever throughout his stay in the ED. Patient was reexamined multiple times by myself over a 3 hour period. The patient continues to be well-appearing without meningeal symptoms or focal neurologic symptoms. He continues to be afebrile. At this point time I clinical suspicion for meningitis is low and I do not feel that a lumbar puncture is indicated. I do feel it is reasonable to have the patient continue to do IV fluid rehydration and keep a close eye on his symptoms. Should the patient develop any persistently elevated fever, severe headache, focal neurologic symptoms or neck stiffness he should return to the ED immediately for further evaluation. The patient will be discharged home. He plans to follow up with his home lighting adviser on Sunday of this week. Differential Diagnosis: Differential diagnosis considered includes meningitis, atelectasis, urinary tract infection, viral syndrome, dehydration, metabolic abnormality - Data Points Laboratory Results: Laboratory Results 03/20/16 10:30 03/20/16 10:30 03/20/16 03/20/16 03/20/16 11:45 10: 10:29 WBC 7.29 10^3/uL (3.80-9.50) RBC 3.83 L 10^6/uL (4.40-6.38) Hgb 12.2 L g/dL (13.7-17.5) POC Hgb 11.6 L gm/dL (14.5-17.3) Hct 34.3 L % (40.0-51.0) POC Hct 34 L % (42.8-50.6) MCV 89.6 fL (81.5-99.8) MCH 31.9 pg (27.9-34.1) MCHC 35.6 g/dL (32.4-36.7) RDW 13.3 % (11.5-15.2) Plt Count 136 L 10^3/uL (150-400) MPV 9.6 fL (8.7-11.7) Neut % (Auto) 55.4 % (39.3-74.2) Lymph % (Auto) 33.5 % (15.0-45.0) [place] % (Auto) 7.5 % (4.5-13.0) Eos % (Auto) 2.1 % (0.6-7.6) Baso % (Auto) 0.5 % (0.3-1.7) Nucleat RBC Rel Count 0.0 % (0.0-0.2) Absolute Neuts (auto) 4.04 10^3/uL (1.70-6.50) Absolute Lymphs (auto) 2.44 10^3/uL (1.00-3.00) Absolute Monos (auto) 0.55 10^3/uL (0.30-0.80) Absolute Eos (auto) 0.15 10^3/uL (0.03-0.40) Absolute Basos (auto) 0.04 10^3/uL (0.02-0.10) Absolute Nucleated RBC 0.00 10^3/uL (0-0.01) Immature Gran % 1.0 % (0.0-1.1) Immature Gran # 0.07 10^3/uL (0.00-0.10) POC Sodium 138 mEq/L (134-144) Sodium 138 mEq/L (134-144) POC Potassium 3.6 mEq/L (3.3-5.0) Potassium 3.8 mEq/L (3.5-5.2) POC Chloride 99 mEq/L (96-108) Chloride 103 D mEq/L (97-110) Carbon Dioxide 28 D mEq/l (22-31) Anion Gap 7 mEq/L (8-16) POC BUN 18 mg/dL (7-23) BUN 18 mg/dL (7-23) Creatinine 1.2 mg/dL (0.7-1.3) POC Creatinine 1.3 mg/dL (0.8-1.5) Estimated GFR > 60 Glucose 91 mg/dL (70-100) POC Glucose 94 mg/dL (70-100) Calcium 8.5 mg/dL (8.5-10.4) Urine Color YELLOW Urine Appearance CLEAR Urine pH 5.0 (5.0-7.5) Ur Specific [place] 1.015 (1.002-1.030) Urine Protein NEGATIVE (NEGATIVE) Urine Ketones NEGATIVE (NEGATIVE) Urine Blood 2+ H (NEGATIVE) Urine Nitrate NEGATIVE (NEGATIVE) Urine Bilirubin NEGATIVE (NEGATIVE) Urine Urobilinogen NEGATIVE EU (0.2-1.0) Ur Leukocyte Esterase NEGATIVE (NEGATIVE) Urine RBC 1-3 /hpf (0-3) Urine WBC 1-3 /hpf (0-3) Ur Epithelial Cells NONE SEEN /lpf (NONE-1+) Ur Culture Indicated? NOT INDICATED (NI) Urine Glucose NEGATIVE (NEGATIVE) Medications Given: Discontinued Medications Sodium Chloride (Ns) 1,000 mls @ 0 mls/hr IV ONCE ONE PRN Reason: Wide Open Stop: 03/20/16 10:49 Last Admin: 03/20/16 10:49 Dose: 1,000 mls Point of Care Test Results: 03/20/16 10:29 POC Sodium 138 POC Potassium 3.6 POC Chloride 99 POC BUN 18 POC Creatinine 1.3 POC Glucose 94 Departure - Departure Disposition: Home, Routine, Self-Care Clinical Impression: Dehydration, Pituitary adenoma, Headache Condition: Good Instructions: Dehydration (ED) Additional Instructions: 1. Follow up as scheduled with your neurosurgeon and home lighting adviser. 2. Please take medications as prescribed by Endocrinology. 3. Please return to the ED for worsening headache, fever, neck stiffness or other concerns. Referrals: Axel Machado MD [Medical Doctor] - As per Instructions Minnie Rose MD [Medical Doctor] - As per Instructions
[2016-03-20 10:45] LABS: ABSOLUTE IMMATURE GRANULOCYTES 0.07 10^3/uL (0.00-0.10); ADD DIFF? NO; ADD MORPH? NO; ADD SCAN? NO; ATYPICAL LYMPHOCYTE FLAG 0 (0-99); FRAGMENT RBC FLAG 0 (0-99); HEMATOCRIT 34.3 % (40.0-51.0); HEMOGLOBIN 12.2 g/dL (13.7-17.5); LEFT SHIFT FLG 10 (0-99); LIPEMIA HEMOLYSIS FLAG 90 (0-99); MEAN CELL HEMOGLOBIN 31.9 pg (27.9-34.1); MEAN CELL HEMOGLOBIN CONCENTR. 35.6 g/dL (32.4-36.7); MEAN CELL VOLUME 89.6 fL (81.5-99.8); MEAN PLATELET VOLUME 9.6 fL (8.7-11.7); PLATELET CLUMPS FLAG 0 (0-99); PLATELET COUNT 136 10^3/uL (150-400); RED BLOOD CELL COUNT 3.83 10^6/uL (4.40-6.38); RED CELL DISTRIBUTION WIDTH 13.3 % (11.5-15.2)
[2016-03-20] MEDS ORDERED: NS 1,000 ML IV ONE (10:48)
[2016-03-20 11:02] LABS: ANION GAP 7 mEq/L (8-16); CALCIUM 8.5 mg/dL (8.5-10.4); CARBON DIOXIDE 28 mEq/l (22-31); CHLORIDE 103 mEq/L (97-110); CREATININE 1.2 mg/dL (0.7-1.3); GLOMERULAR FILTRATION RATE > 60; GLUCOSE 91 mg/dL (70-100); POTASSIUM 3.8 mEq/L (3.5-5.2); SODIUM 138 mEq/L (134-144)
[2016-03-20 12:12] LABS: COLOR YELLOW; LEUKOCYTE ESTERASE,URINE NEGATIVE (NEGATIVE); NITRITE,URINE NEGATIVE (NEGATIVE)
[2016-03-20 12:18] VITALS: PULSE 67
[2016-03-20 13:25] VITALS: BP 120/90; RESP 15; TEMP 98.1; O2SAT 97
== END 2016-03-20 13:23 | disposition home or self-care (01) ==
DX: R51 Headache (principal); E86.0 Dehydration; D35.2 Benign neoplasm of pituitary gland; E11.9 Type 2 diabetes mellitus without complications
CPT/HCPCS: 82947-QW